=== PATIENT | female | born 1945 | race Hispanic/Latino ===

== ENCOUNTER 2019-04-23 13:16 | Outpatient (CLI) | payer MEDICARE ==
--- NOTE | 2019-04-23 14:25 | XRay Report ---
CHEST 2 VIEWS INDICATION / CLINICAL INFORMATION: URI WITH COUGH AND CONGESTION. COMPARISON: 03/29/2012 FINDINGS: SUPPORT DEVICES: None. HEART / MEDIASTINUM: No significant abnormality. LUNGS / PLEURA: No significant pulmonary or pleural abnormality. No pneumothorax. ADDITIONAL FINDINGS: No significant additional findings. IMPRESSION: 1. No acute findings. Signer Name: Valerio Cohen MD Signed: 04/23/2019 2:21 PM Workstation Name: [id number]
== END 2019-04-23 13:17 | disposition home or self-care (01) ==
LOC: SPVIMAG 13:16
PROVIDERS: ATTEND Internal Medicine
DX: J06.9 Acute upper respiratory infection, unspecified (principal)
CPT/HCPCS: 71046